=== PATIENT | female | born 1950 | race Caucasian/White ===

== ENCOUNTER 2016-12-06 09:02 | Outpatient (CLI) ==
[2016-12-06 09:38] LABS: ALBUMIN 3.9 g/dL (3.4-5.0); ALBUMIN/GLOBULIN RATIO 1.26; ANION GAP 12.9; BILIRUBIN,TOTAL 0.74 mg/dL (0.00-1.20); BUN/CREATININE RATIO 23.37; CALCIUM 9.5 mg/dL (8.2-10.2); CREATININE 0.77 mg/dL (0.60-1.30); POTASSIUM 4.9 mmol/L (3.5-5.10)
--- NOTE | 2016-12-06 12:12 | CT ---
EXAM: CT abdomen pelvis without contrast HISTORY: Left ovarian mass on ultrasound COMPARISON: Ultrasound of the pelvis 08/02/2016 and 12/14/2015 TECHNIQUE: Serial axial images of the abdomen pelvis were performed from the lung bases through the inferior pelvis without contrast. These were viewed in multiple planes. FINDINGS: The lung bases are clear. This evaluation is limited due to lack of contrast. The liver is unremarkable. The gallbladder is normal. The adrenal glands are normal. The left kidney demonstrates a round well marginated low at tenuation lesion measuring 5.4 x 6.3 cm with indeterminate Hounsfield units above that of simple flu id. No definitive calcification or soft tissue nodule is identified. The right kidney demonstrates a round low attenuation lesion posteriorly on image 28, with Hounsfield units consistent with a cys t measuring 1.4 cm in diameter. The spleen is unremarkable. The pancreas demonstrates mild fatty r eplacement. The stomach is normal. The small bowel in the abdomen pelvis is unremarkable. Urinary bladder is normal. The colon is unr emarkable with mild scattered diverticulosis. There is a large cystic lesion extending from the pel vis with mild mass effect on the adjacent uterus. This measures 9.4 x 8.5 x 8.6 cm. There is no vi sualized soft tissue within this large cyst in the origin cannot be definitively identified. There i s no free air, free fluid or lymphadenopathy present. The osseous structures demonstrate no focal l ytic or blastic lesion with mild scattered degenerative disease throughout the lumbar spine. IMPRESSION: 1. Large pelvic cystis lesion measuring 9.4 x 8.5 x 8.6 cm is consistent with a large complex hypoe choic cyst seen on prior ultrasound measuring 10 x 7 x 9 cm. This evaluation is limited due to lack of contrast. If further evaluation is clinically indicated, MRI may be obtained. 2. Well rounded low attenuation lesion in the left kidney with Hounsfield units just above that of simple fluid likely representing a proteinaceous versus mildly hemorrhagic/complex cyst. If further evaluation is clinically indicated, ultrasound may be obtained. 3. Right renal cyst is present.
== END 2016-12-06 09:03 | disposition home or self-care (01) ==
LOC: RAD 09:02
PROVIDERS: ATTEND Nurse Practitioner Family
DX: N83.9 Noninflammatory disorder of ovary, fallopian tube and broad ligament, unspecified (principal)
CPT/HCPCS: 36415; 80053

== ENCOUNTER 2016-12-08 11:53 | Outpatient (CLI) ==
--- NOTE | 2016-12-08 13:06 | CT ---
EXAM: CT THORAX HISTORY: Malignant neoplasm of breast. Chest pain. TECHNIQUE: CT thorax without intravenous contrast. 5-mm axial sections. Coronal and sagittal re-fo rmations. COMPARISON: None FINDINGS: Heart size is within normal limits. There is moderate aortic atherosclerosis. Mild aneurysmal micheal izabela of the dorsal aortic arch/upper descending thoracic aorta at 3.1 cm. No obvious mediastinal or hilar lymphadenopathy within limits of this unenhanced exam. There is a discoid opacity in the right anterior cardiophrenic angle which is most likely related to scarring or atelectasis. The lungs are otherwise grossly clear. No pleural fluid or vascular jn estion. Bones reveal small lucency measuring slightly less than a centimeter at the level T10. Peripheral s oft tissues demonstrate a 1.2 cm mass or collection in the axillary tail of the left breast. Incide ntal note of a large cystic mass of the left kidney which is partially imaged at 5.6 cm. This has r elative low attenuation and probably represents a cyst. There is significant fatty replacement of t he pancreas. IMPRESSION: 1. There is a 1.2 cm well-defined mass or collection of the lateral left breast. 2. There is moderate aortic atherosclerosis. Mild aneurysmal caliber of the dorsal aortic arch/upp er descending thoracic aorta at 3.1 cm. 3. No suspicious pulmonary nodules identified. No obvious mediastinal or hilar lymphadenopathy.
== END 2016-12-08 11:54 | disposition home or self-care (01) ==
LOC: RAD 11:53
PROVIDERS: ATTEND Nurse Practitioner Family
DX: Z12.31 Encounter for screening mammogram for malignant neoplasm of breast (principal); R01.1 Cardiac murmur, unspecified; H66.91 Otitis media, unspecified, right ear

== ENCOUNTER 2017-03-06 09:16 | Outpatient (CLI) | payer OTHER ==
[2017-03-06 16:15] LABS: FLU INTERNAL QC INTERNAL QC VALID; RAPID FLU A NEGATIVE (NEGATIVE); RAPID FLU B NEGATIVE (NEGATIVE)
== END 2017-03-06 09:17 | disposition home or self-care (01) ==
LOC: LAB 09:16
PROVIDERS: ATTEND Nurse Practitioner Family
DX: J02.9 Acute pharyngitis, unspecified (principal)
CPT/HCPCS: 87651; 87804; 87880

== ENCOUNTER → 2017-05-09 | Outpatient (POV) | LOC: OUTPT 00:01 | PROVIDERS: ATTEND Otolaryngology | DX: H91.90 Unspecified hearing loss, unspecified ear (principal) ==

== ENCOUNTER 2017-11-28 22:49 | Outpatient (CLI) | END 2017-11-28 22:50 | disposition home or self-care (01) | LOC: LAB 22:49 | PROVIDERS: ATTEND Nurse Practitioner Family | DX: R05 Cough (principal); R50.9 Fever, unspecified | CPT/HCPCS: 87502; 87651 ==